=== PATIENT | female | born 1990 | race Caucasian/White ===

== ENCOUNTER 2017-02-12 06:39 | Day surgery (SDC) | payer OTHER ==
[~2017-02-12] VITALS: Ht 172.7 cm; Wt 122.5 kg
[~2017-02-12 06:39] MED LIST: BACTRIM,SEPT1 TABLET PO; FLOMAX0.4 MG PO; GLIMEPIRIDE4 MG PO; HYDROCHLOROTH12.5 M3 PO; INSULIN PUMP SCCONT; JARDIANCE25 MG PO; LANTUS 10100 UNITS/ SC; LISINOPRIL10 MG PO; LORTAB 5-325 M1 EACH PO; METFORMIN HCL1000 MG PO; METHYLDOPA500 MG PO; NAPROSYN500 MG PO; ONGLYZA5 MG PO; PERCOCET 5/31 TABLET PO; PRAVASTATIN SOD20 MG PO; PRENATAL TABLE1 EAC3 PO; RAMIPRIL1.25 MG PO; TORADOL10 MG PO; TRINESSA1 EACH PO; VICODIN 5-3001 EACH PO; ZOFRAN ODT8 MG PO; ZOFRAN4 MG PO; [UNRECOGNIZED DRUG - REMARK]
[2017-02-12 07:10] VITALS: BP 122/62
[2017-02-12 07:45] LABS: POINT-OF-CARE METER ID UU14174212
[2017-02-12 10:09] LABS: POINT-OF-CARE METER ID UU13113675
[2017-02-12 10:45] VITALS: BP 127/67
[2017-02-12 11:25] VITALS: BP 126/85
== END 2017-02-12 11:30 | disposition home or self-care (01) ==
LOC: SDC 06:39
PROVIDERS: Obstetrics & Gynecology Gynecology
DX: N84.0 Polyp of corpus uteri (principal); N97.9 Female infertility, unspecified; N85.4 Malposition of uterus; I10 Essential (primary) hypertension; E11.9 Type 2 diabetes mellitus without complications; Z96.41 Presence of insulin pump (external) (internal); Z79.84 Long term (current) use of oral hypoglycemic drugs; Z79.4 Long term (current) use of insulin; Z87.891 Personal history of nicotine dependence
CPT/HCPCS: 82948; 84702; 88305; 93005; J0330; J1170; J2250; J2405; J3010

== ENCOUNTER 2017-07-30 18:16 | Emergency (ER) | payer OTHER ==
[~2017-07-30] VITALS: Ht 172.7 cm; Wt 139.8 kg
[2017-07-30 18:52] LABS: MCH 29.7 PG (29.0-34.0); MCHC 35.9 G/DL (30.0-36.0); MCV 82.7 FL (83-99); PLATELET COUNT 173 K/uL (156-360); RBC DIS.WIDTH-CV 13.1 % (11.8-14.6); RBC DIS.WIDTH-SD 38.8 % (39-53); RED BLOOD COUNT 4.11 M/uL (3.80-5.20); WHITE BLOOD COUNT 9.2 K/uL (4.1-10.2)
[2017-07-30 19:07] LABS: CHLORIDE 109 mEq/L (99-109); POTASSIUM 3.8 mEq/L (3.7-5.4); SODIUM 136 mEq/L (136-147)
[2017-07-30 19:09] LABS: GLUCOSE 188 mg/dL (70-99)
[2017-07-30 19:11] LABS: ANION GAP 5 MEQ/L (2-14); TOTAL BILIRUBIN 0.3 mg/dL (0.0-1.0)
[2017-07-30 19:13] LABS: ALKALINE PHOSPHATASE 57 IU/L (3-129); GFR ESTIMATE (CALCULATED) > 59 mL/min/
[2017-07-30 19:14] LABS: UREA NITROGEN (BUN) 8 mg/dL (9-23)
[2017-07-30 20:42] LABS: ADD MIUA? YES; BILIRUBIN NEGATIVE; BLOOD NEGATIVE; COLOR YELLOW ((YELLOW)); GLUCOSE (STRIP) >=500; KETONES NEGATIVE; LEUKOCYTES NEGATIVE; NITRITE NEGATIVE; PROTEIN (STRIP) 30; SPECIFIC GRAVITY 1.016 (1.000-1.030)
[2017-07-30 20:58] LABS: BACTERIA RARE /HPF; EPITHELIAL CELLS RARE /HPF; MUCUS TRACE /LPF; RED BLOOD CELLS 0-5 /HPF (0-5); UCUL ADDED? NO; WHITE BLOOD CELLS 0-5 /HPF (0-5)
[2017-07-30 21:13] VITALS: BP 140/85
== END 2017-07-30 21:14 | disposition home or self-care (01) ==
LOC: EME 18:16 → RME 18:16
PROVIDERS: Nurse Practitioner Family
DX: O12.01 Gestational edema, first trimester (principal); O99.281 Endocrine, nutritional and metabolic diseases complicating pregnancy, first trimester; O24.311 Unspecified pre-existing diabetes mellitus in pregnancy, first trimester; E11.9 Type 2 diabetes mellitus without complications; Z79.4 Long term (current) use of insulin; Z96.41 Presence of insulin pump (external) (internal); Z3A.13 13 weeks gestation of pregnancy; E78.5 Hyperlipidemia, unspecified; Z79.84 Long term (current) use of oral hypoglycemic drugs; Z87.442 Personal history of urinary calculi; Z87.891 Personal history of nicotine dependence; Z88.8 Allergy status to other drugs, medicaments and biological substances
CPT/HCPCS: 80053; 81003; 85027; 93971

== ENCOUNTER 2017-09-12 20:32 | Outpatient (CLI) | payer OTHER ==
[2017-09-12 21:02] VITALS: BP 138/96
[2017-09-12 21:20] VITALS: BP 134/80
[2017-09-12 21:32] LABS: BASOPHIL (%) 0.1 % (0-1); EOSINOPHIL (%) 0.2 % (0-5); HEMATOCRIT 34.7 % (36.0-46.0); HEMOGLOBIN 12.3 G/DL (11.9-15.5); IMMATURE GRANULOCYTE (%) 0.5 % (0.0-0.7); LYMPHOCYTE (%) 6.5 % (15-42); LYMPHOCYTE COUNT 0.9 K/uL (1.0-2.8); MCH 29.9 PG (29.0-34.0); MCHC 35.4 G/DL (30.0-36.0); MCV 84.4 FL (83-99); MONOCYTE (%) 4.2 % (3-12); MONOCYTE COUNT 0.6 K/uL (0-0.8); NEUTROPHIL (%) 88.5 % (45-76); NEUTROPHIL COUNT 11.9 K/uL (1.8-6.4); PLATELET COUNT 184 K/uL (156-360); RBC DIS.WIDTH-CV 13.9 % (11.8-14.6); RBC DIS.WIDTH-SD 42.2 % (39-53); RED BLOOD COUNT 4.11 M/uL (3.80-5.20); WHITE BLOOD COUNT 13.5 K/uL (4.1-10.2)
[2017-09-12 23:23] VITALS: BP 133/83
== END 2017-09-13 00:30 | disposition home or self-care (01) ==
LOC: LDRP-OP 20:32 → 2WEST 20:33
PROVIDERS: Advanced Practice Midwife; Obstetrics & Gynecology
DX: O99.89 Other specified diseases and conditions complicating pregnancy, childbirth and the puerperium (principal); O24.312 Unspecified pre-existing diabetes mellitus in pregnancy, second trimester; E11.9 Type 2 diabetes mellitus without complications; Z3A.19 19 weeks gestation of pregnancy; Z96.41 Presence of insulin pump (external) (internal); Z79.4 Long term (current) use of insulin
CPT/HCPCS: 59025; 82948; 85025; 87502; G0378; J2405; J7120

== ENCOUNTER 2017-10-11 11:15 | Outpatient (CLI) | payer OTHER ==
[2017-10-11 11:40] VITALS: BP 131/83
[2017-10-11] MEDS ORDERED: ASPIR 8181 M1 PO (11:46)
[2017-10-11] MEDS ORDERED: GLUCOPHAGE500 MG PO (11:47)
[2017-10-11 12:17] VITALS: BP 122/78
[2017-10-11 12:49] LABS: UR CREATININE CONCENTRATION 133.6 MG/DL
[2017-10-11 13:03] LABS: HEMATOCRIT 32.6 % (36.0-46.0); HEMOGLOBIN 11.3 G/DL (11.9-15.5); MCH 29.7 PG (29.0-34.0); MCHC 34.7 G/DL (30.0-36.0); MCV 85.6 FL (83-99); PLATELET COUNT 175 K/uL (156-360); RBC DIS.WIDTH-CV 14.2 % (11.8-14.6); RED BLOOD COUNT 3.81 M/uL (3.80-5.20); WHITE BLOOD COUNT 10.2 K/uL (4.1-10.2)
[2017-10-11 13:12] LABS: ALBUMIN 3.4 G/DL (3.2-4.8); ALKALINE PHOSPHATASE 74 IU/L (3-129); ALT (GPT) 30 IU/L (3-49); AST (GOT) 33 IU/L (2-34); CHLORIDE 104 MEQ/L (99-109); CREATININE 0.5 MG/DL (0.6-1.3); GFR ESTIMATE (CALCULATED) > 59 mL/min/; GLUCOSE 121 mg/dL (70-99); SODIUM 137 MEQ/L (136-147); TOTAL BILIRUBIN 0.5 MG/DL (0.0-1.0); TOTAL PROTEIN 6.2 G/DL (6.4-8.3); UREA NITROGEN (BUN) 6 mg/dL (9-23)
[2017-10-11 14:15] VITALS: BP 127/79
== END 2017-10-11 16:50 | disposition home or self-care (01) ==
LOC: LDRP-OP 11:15 → 2WEST 11:17 → LDRP-OP 03-04 01:18
PROVIDERS: Obstetrics & Gynecology Obstetrics
DX: O26.892 Other specified pregnancy related conditions, second trimester (principal); R51 Headache; O10.912 Unspecified pre-existing hypertension complicating pregnancy, second trimester; O24.312 Unspecified pre-existing diabetes mellitus in pregnancy, second trimester; E11.9 Type 2 diabetes mellitus without complications; Z79.4 Long term (current) use of insulin; Z96.41 Presence of insulin pump (external) (internal); Z3A.25 25 weeks gestation of pregnancy; Z87.891 Personal history of nicotine dependence
CPT/HCPCS: 59025; 76805; 80053; 82570; 82948; 84156; 85027; G0378

== ENCOUNTER 2017-10-18 09:56 | Outpatient (CLI) | payer OTHER ==
[2017-10-18] VITALS (7 sets, daily range): BP systolic 124–140; BP diastolic 71–81
[~2017-10-18 09:56] MED LIST changes: +ASPIR 8181 M1 PO; +GLUCOPHAGE500 MG PO
[2017-10-18 11:00] LABS: BASOPHIL (%) 0.2 % (0-1); EOSINOPHIL (%) 0.6 % (0-5); EOSINOPHIL COUNT 0.1 K/uL (0-0.3); HEMOGLOBIN 11.4 G/DL (11.9-15.5); IMMATURE GRANULOCYTE (%) 0.6 % (0.0-0.7); LYMPHOCYTE (%) 13.3 % (15-42); LYMPHOCYTE COUNT 1.6 K/uL (1.0-2.8); MCH 28.7 PG (29.0-34.0); MCHC 34.5 G/DL (30.0-36.0); MCV 83.1 FL (83-99); MONOCYTE (%) 4.7 % (3-12); MONOCYTE COUNT 0.6 K/uL (0-0.8); NEUTROPHIL (%) 80.6 % (45-76); NEUTROPHIL COUNT 9.5 K/uL (1.8-6.4); PLATELET COUNT 193 K/uL (156-360); RBC DIS.WIDTH-CV 13.9 % (11.8-14.6); RBC DIS.WIDTH-SD 41.1 % (39-53); RED BLOOD COUNT 3.97 M/uL (3.80-5.20); WHITE BLOOD COUNT 11.8 K/uL (4.1-10.2)
[2017-10-18 11:14] LABS: UR CREATININE CONCENTRATION 257.3 MG/DL
[2017-10-18 11:31] LABS: ALBUMIN 3.4 G/DL (3.2-4.8); ALKALINE PHOSPHATASE 78 IU/L (3-129); ALT (GPT) 29 IU/L (3-49); AST (GOT) 27 IU/L (2-34); CHLORIDE 103 MEQ/L (99-109); CREATININE 0.6 MG/DL (0.6-1.3); GFR ESTIMATE (CALCULATED) > 59 mL/min/; GLUCOSE 152 mg/dL (70-99); POTASSIUM 3.9 MEQ/L (3.7-5.4); SODIUM 135 MEQ/L (136-147); TOTAL BILIRUBIN 0.5 MG/DL (0.0-1.0); TOTAL PROTEIN 6.8 G/DL (6.4-8.3); UREA NITROGEN (BUN) 7 mg/dL (9-23)
[2017-10-18] MEDS ORDERED: PROCARDIA XL30 MG PO (11:58)
== END 2017-10-18 12:13 | disposition home or self-care (01) ==
LOC: LDRP-OP 09:56 → 2WEST 09:57 → LDRP-OP 03-04 19:26
PROVIDERS: Nurse Practitioner
DX: O13.2 Gestational [pregnancy-induced] hypertension without significant proteinuria, second trimester (principal); Z3A.24 24 weeks gestation of pregnancy; O24.012 Pre-existing type 1 diabetes mellitus, in pregnancy, second trimester; E11.9 Type 2 diabetes mellitus without complications; Z96.41 Presence of insulin pump (external) (internal); Z79.4 Long term (current) use of insulin; O99.412 Diseases of the circulatory system complicating pregnancy, second trimester; R00.0 Tachycardia, unspecified
CPT/HCPCS: 59025; 80053; 82570; 84156; 85025; G0378

== ENCOUNTER 2017-10-31 00:24 | Outpatient (CLI) | payer OTHER ==
[~2017-10-31 00:24] MED LIST changes: +PROCARDIA XL30 MG PO
[2017-10-31] MEDS ORDERED: PROCARDIA XL60 MG PO (00:46)
[2017-10-31] MEDS ORDERED: LABETALOL HCL100 MG PO (00:47)
[2017-10-31 00:48] VITALS: BP 136/80
[2017-10-31 00:50] LABS: BASOPHIL (%) 0.2 % (0-1); EOSINOPHIL (%) 0.9 % (0-5); EOSINOPHIL COUNT 0.1 K/uL (0-0.3); HEMATOCRIT 32.3 % (36.0-46.0); HEMOGLOBIN 11.6 G/DL (11.9-15.5); IMMATURE GRANULOCYTE (%) 0.8 % (0.0-0.7); LYMPHOCYTE (%) 16.3 % (15-42); LYMPHOCYTE COUNT 1.8 K/uL (1.0-2.8); MCH 29.7 PG (29.0-34.0); MCHC 35.9 G/DL (30.0-36.0); MCV 82.6 FL (83-99); MONOCYTE COUNT 0.7 K/uL (0-0.8); NEUTROPHIL (%) 75.8 % (45-76); NEUTROPHIL COUNT 8.3 K/uL (1.8-6.4); PLATELET COUNT 203 K/uL (156-360); RBC DIS.WIDTH-CV 14.2 % (11.8-14.6); RBC DIS.WIDTH-SD 41.7 % (39-53); RED BLOOD COUNT 3.91 M/uL (3.80-5.20)
[2017-10-31 00:59] LABS: ALBUMIN 3.4 g/dL (3.2-4.8); CHLORIDE 106 mEq/L (99-109); POTASSIUM 3.7 mEq/L (3.7-5.4); SODIUM 137 mEq/L (136-147)
[2017-10-31 01:02] LABS: GLUCOSE 132 mg/dL (70-99); TOTAL PROTEIN 7.1 g/dL (6.4-8.3)
[2017-10-31 01:03] LABS: TOTAL BILIRUBIN 0.4 mg/dL (0.0-1.0)
[2017-10-31 01:05] LABS: ALKALINE PHOSPHATASE 102 IU/L (3-129); CREATININE 0.7 mg/dL (0.6-1.3); GFR ESTIMATE (CALCULATED) > 59 mL/min/
[2017-10-31 01:06] LABS: UREA NITROGEN (BUN) 9 mg/dL (9-23)
[2017-10-31 01:07] LABS: AST (GOT) 32 IU/L (2-34)
[2017-10-31 01:08] LABS: ALT (GPT) 36 IU/L (3-49); URIC ACID 4.8 mg/dL (3.1-9.2)
[2017-10-31 01:36] VITALS: BP 138/72
[2017-10-31 03:37] LABS: UR CREATININE CONCENTRATION 115.2 MG/DL
[2017-10-31 03:41] VITALS: BP 130/65
== END 2017-10-31 04:40 | disposition home or self-care (01) ==
LOC: LDRP-OP 00:24 → 2WEST 00:25 → LDRP-OP 03-04 12:41
PROVIDERS: Nurse Practitioner
DX: O16.2 Unspecified maternal hypertension, second trimester (principal); Z3A.26 26 weeks gestation of pregnancy
CPT/HCPCS: 59025; 80053; 82570; 84156; 84550; 85025; G0378

== ENCOUNTER → 2017-11-12 | Outpatient (CLI) | payer OTHER ==
[~2017-11-12] VITALS: Ht 172.7 cm; Wt 141.0 kg
[~2017-11-12] MED LIST changes: +LABETALOL HCL100 MG PO; +PROCARDIA XL60 MG PO
[2017-11-12 15:32] VITALS: BP 133/81
== END | disposition home or self-care (01) ==
LOC: IVINF 15:26
DX: Z34.83 Encounter for supervision of other normal pregnancy, third trimester (principal); Z3A.28 28 weeks gestation of pregnancy; Z67.21 Type B blood, Rh negative
CPT/HCPCS: 96372; J2790

== ENCOUNTER 2017-11-24 16:27 | Outpatient (CLI) | payer OTHER ==
[2017-11-24 16:56] VITALS: BP 126/75
[2017-11-24] MEDS ORDERED: NEXIUM20 MG PO (16:56)
[2017-11-24 17:11] LABS: BASOPHIL (%) 0.2 % (0-1); EOSINOPHIL (%) 0.7 % (0-5); EOSINOPHIL COUNT 0.1 K/uL (0-0.3); HEMATOCRIT 32.2 % (36.0-46.0); IMMATURE GRANULOCYTE (%) 0.6 % (0.0-0.7); LYMPHOCYTE (%) 14.4 % (15-42); LYMPHOCYTE COUNT 1.8 K/uL (1.0-2.8); MCH 28.4 PG (29.0-34.0); MCHC 34.2 G/DL (30.0-36.0); MONOCYTE (%) 6.1 % (3-12); MONOCYTE COUNT 0.8 K/uL (0-0.8); NEUTROPHIL COUNT 9.5 K/uL (1.8-6.4); PLATELET COUNT 226 K/uL (156-360); RBC DIS.WIDTH-CV 14.6 % (11.8-14.6); RBC DIS.WIDTH-SD 43.1 % (39-53); RED BLOOD COUNT 3.88 M/uL (3.80-5.20); WHITE BLOOD COUNT 12.2 K/uL (4.1-10.2)
[2017-11-24 17:31] LABS: ALBUMIN 3.4 G/DL (3.2-4.8); CHLORIDE 105 MEQ/L (99-109); SODIUM 135 MEQ/L (136-147); TOTAL BILIRUBIN 0.4 MG/DL (0.0-1.0)
[2017-11-24 17:36] VITALS: BP 123/75
[2017-11-24 17:37] LABS: ALKALINE PHOSPHATASE 113 IU/L (3-129); ALT (GPT) 27 IU/L (3-49); AST (GOT) 25 IU/L (2-34); CREATININE 0.6 MG/DL (0.6-1.3); GFR ESTIMATE (CALCULATED) > 59 mL/min/; GLUCOSE 73 mg/dL (70-99); UREA NITROGEN (BUN) 5 mg/dL (9-23)
[2017-11-24 18:20] LABS: UR CREATININE CONCENTRATION 227.4 MG/DL
[2017-11-24 19:23] VITALS: BP 132/78
[2017-11-24 22:41] VITALS: BP 137/81
[2017-11-25 03:02] VITALS: BP 123/68
[2017-11-25 08:29] VITALS: BP 119/70
[2017-11-25 10:51] VITALS: BP 107/55
[2017-11-25 16:13] VITALS: BP 134/67
== END 2017-11-25 17:18 | disposition home or self-care (01) ==
LOC: LDRP-OP 16:27 → 2WEST 16:28 → LDRP-OP 03-04 04:56
PROVIDERS: Obstetrics & Gynecology
DX: O99.283 Endocrine, nutritional and metabolic diseases complicating pregnancy, third trimester (principal); E11.649 Type 2 diabetes mellitus with hypoglycemia without coma; O16.3 Unspecified maternal hypertension, third trimester; O99.213 Obesity complicating pregnancy, third trimester; Z68.42 Body mass index [BMI] 45.0-49.9, adult; O26.833 Pregnancy related renal disease, third trimester; N20.0 Calculus of kidney; Z3A.30 30 weeks gestation of pregnancy; Z96.41 Presence of insulin pump (external) (internal); Z79.4 Long term (current) use of insulin
CPT/HCPCS: 59025; 80053; 82570; 82948; 84156; 85025; G0378; J1815

== ENCOUNTER 2017-12-16 16:26 | Outpatient (CLI) | payer OTHER ==
[~2017-12-16] VITALS: Ht 172.7 cm; Wt 139.2 kg
[~2017-12-16 16:26] MED LIST changes: +NEXIUM20 MG PO
[2017-12-16 16:48] VITALS: BP 124/78
[2017-12-16] MEDS ORDERED: LABETALOL HCL100 MG PO (16:48)
[2017-12-16 17:21] VITALS: BP 121/74
[2017-12-16 17:31] LABS: BASOPHIL (%) 0.3 % (0-1); EOSINOPHIL (%) 0.5 % (0-5); EOSINOPHIL COUNT 0.1 K/uL (0-0.3); HEMATOCRIT 33.2 % (36.0-46.0); HEMOGLOBIN 11.4 G/DL (11.9-15.5); IMMATURE GRANULOCYTE (%) 0.5 % (0.0-0.7); LYMPHOCYTE (%) 16.8 % (15-42); LYMPHOCYTE COUNT 1.8 K/uL (1.0-2.8); MCH 28.7 PG (29.0-34.0); MCHC 34.3 G/DL (30.0-36.0); MCV 83.6 FL (83-99); MONOCYTE (%) 6.4 % (3-12); MONOCYTE COUNT 0.7 K/uL (0-0.8); NEUTROPHIL (%) 75.5 % (45-76); NEUTROPHIL COUNT 7.9 K/uL (1.8-6.4); PLATELET COUNT 218 K/uL (156-360); RBC DIS.WIDTH-CV 14.5 % (11.8-14.6); RBC DIS.WIDTH-SD 43.7 % (39-53); RED BLOOD COUNT 3.97 M/uL (3.80-5.20); WHITE BLOOD COUNT 10.5 K/uL (4.1-10.2)
[2017-12-16 17:51] VITALS: BP 112/67
[2017-12-16 17:53] LABS: ALBUMIN 3.4 G/DL (3.2-4.8); ALKALINE PHOSPHATASE 142 IU/L (3-129); ALT (GPT) 26 IU/L (3-49); AST (GOT) 24 IU/L (2-34); CHLORIDE 104 MEQ/L (99-109); CREATININE 0.6 MG/DL (0.6-1.3); GFR ESTIMATE (CALCULATED) > 59 mL/min/; GLUCOSE 84 mg/dL (70-99); POTASSIUM 4.2 MEQ/L (3.7-5.4); SODIUM 135 MEQ/L (136-147); TOTAL BILIRUBIN 0.5 MG/DL (0.0-1.0); TOTAL PROTEIN 7.1 G/DL (6.4-8.3); UREA NITROGEN (BUN) 8 mg/dL (9-23); URIC ACID 5.6 mg/dL (3.1-9.2)
[2017-12-16] MEDS ORDERED: GLUCOPHAGE500 MG PO (18:13)
[2017-12-16] MEDS ORDERED: GLUCOPHAGE1000 MG PO (18:14)
[2017-12-16 18:21] VITALS: BP 111/60
[2017-12-16 18:51] VITALS: BP 126/76
[2017-12-16 20:23] VITALS: BP 118/75
== END 2017-12-16 20:45 | disposition home or self-care (01) ==
LOC: LDRP-OP 16:26 → 2WEST 16:28 → LDRP-OP 03-04 05:45
PROVIDERS: Obstetrics & Gynecology
DX: O14.03 Mild to moderate pre-eclampsia, third trimester (principal); E11.9 Type 2 diabetes mellitus without complications; Z79.4 Long term (current) use of insulin; Z3A.33 33 weeks gestation of pregnancy
CPT/HCPCS: 59025; 80053; 82570; 84156; 84550; 85025; G0378

== ENCOUNTER 2017-12-28 01:57 | Outpatient (CLI) | payer OTHER ==
[~2017-12-28] VITALS: Ht 172.7 cm; Wt 140.1 kg
[~2017-12-28 01:57] MED LIST changes: +GLUCOPHAGE1000 MG PO
[2017-12-28 02:16] VITALS: BP 135/83
[2017-12-28 02:50] VITALS: BP 129/77
[2017-12-28 03:12] LABS: BASOPHIL (%) 0.2 % (0-1); EOSINOPHIL (%) 0.9 % (0-5); EOSINOPHIL COUNT 0.1 K/uL (0-0.3); HEMOGLOBIN 11.2 G/DL (11.9-15.5); IMMATURE GRANULOCYTE (%) 0.6 % (0.0-0.7); LYMPHOCYTE (%) 17.5 % (15-42); LYMPHOCYTE COUNT 1.9 K/uL (1.0-2.8); MCH 29.1 PG (29.0-34.0); MCV 83.1 FL (83-99); MONOCYTE (%) 6.6 % (3-12); MONOCYTE COUNT 0.7 K/uL (0-0.8); NEUTROPHIL (%) 74.2 % (45-76); NEUTROPHIL COUNT 7.9 K/uL (1.8-6.4); PLATELET COUNT 177 K/uL (156-360); RBC DIS.WIDTH-CV 14.7 % (11.8-14.6); RBC DIS.WIDTH-SD 43.5 % (39-53); RED BLOOD COUNT 3.85 M/uL (3.80-5.20); WHITE BLOOD COUNT 10.6 K/uL (4.1-10.2)
[2017-12-28 03:20] VITALS: BP 131/80
[2017-12-28 03:23] LABS: ALBUMIN 3.3 g/dL (3.2-4.8); CHLORIDE 106 mEq/L (99-109); POTASSIUM 3.8 mEq/L (3.7-5.4); SODIUM 139 mEq/L (136-147)
[2017-12-28 03:25] LABS: GLUCOSE 111 mg/dL (70-99)
[2017-12-28 03:26] LABS: TOTAL PROTEIN 6.2 g/dL (6.4-8.3)
[2017-12-28 03:27] LABS: TOTAL BILIRUBIN 0.3 mg/dL (0.0-1.0)
[2017-12-28 03:29] LABS: ALKALINE PHOSPHATASE 179 IU/L (3-129); CREATININE 0.7 mg/dL (0.6-1.3); GFR ESTIMATE (CALCULATED) > 59 mL/min/
[2017-12-28 03:30] LABS: UREA NITROGEN (BUN) 10 mg/dL (9-23)
[2017-12-28 03:31] LABS: AST (GOT) 25 IU/L (2-34)
[2017-12-28 03:32] LABS: ALT (GPT) 30 IU/L (3-49)
[2017-12-28 03:50] VITALS: BP 116/66
[2017-12-28 04:20] VITALS: BP 116/65
[2017-12-28 06:38] LABS: UR CREATININE CONCENTRATION 153.8 MG/DL
== END 2017-12-28 05:23 | disposition home or self-care (01) ==
LOC: LDRP-OP 01:57 → 2WEST 01:58 → LDRP-OP 03-04 21:48
PROVIDERS: Advanced Practice Midwife
DX: O10.913 Unspecified pre-existing hypertension complicating pregnancy, third trimester (principal); R51 Headache; Z3A.34 34 weeks gestation of pregnancy
CPT/HCPCS: 59025; 80053; 82570; 84156; 85025; 85384; G0378

== ENCOUNTER 2018-01-01 15:50 | Outpatient (CLI) | payer OTHER ==
[~2018-01-01] VITALS: Ht 172.7 cm; Wt 143.0 kg
[2018-01-01 16:32] VITALS: BP 128/83
[2018-01-01 16:38] LABS: BASOPHIL (%) 0.2 % (0-1); EOSINOPHIL (%) 0.6 % (0-5); EOSINOPHIL COUNT 0.1 K/uL (0-0.3); HEMATOCRIT 31.8 % (36.0-46.0); HEMOGLOBIN 10.9 G/DL (11.9-15.5); IMMATURE GRANULOCYTE (%) 0.8 % (0.0-0.7); LYMPHOCYTE (%) 14.9 % (15-42); LYMPHOCYTE COUNT 1.5 K/uL (1.0-2.8); MCH 28.9 PG (29.0-34.0); MCHC 34.3 G/DL (30.0-36.0); MCV 84.4 FL (83-99); MONOCYTE (%) 4.9 % (3-12); MONOCYTE COUNT 0.5 K/uL (0-0.8); NEUTROPHIL (%) 78.6 % (45-76); NEUTROPHIL COUNT 7.7 K/uL (1.8-6.4); PLATELET COUNT 181 K/uL (156-360); RBC DIS.WIDTH-CV 14.8 % (11.8-14.6); RBC DIS.WIDTH-SD 45.3 % (39-53); RED BLOOD COUNT 3.77 M/uL (3.80-5.20); WHITE BLOOD COUNT 9.8 K/uL (4.1-10.2)
[2018-01-01 16:53] VITALS: BP 139/81
[2018-01-01 17:04] VITALS: BP 144/83
[2018-01-01 17:19] LABS: ALBUMIN 3.3 G/DL (3.2-4.8); CHLORIDE 106 MEQ/L (99-109); POTASSIUM 4.3 MEQ/L (3.7-5.4); SODIUM 135 MEQ/L (136-147); TOTAL BILIRUBIN 0.4 MG/DL (0.0-1.0)
[2018-01-01 17:24] LABS: ALKALINE PHOSPHATASE 170 IU/L (3-129); ALT (GPT) 23 IU/L (3-49); AST (GOT) 24 IU/L (2-34); CREATININE 0.6 MG/DL (0.6-1.3); GFR ESTIMATE (CALCULATED) > 59 mL/min/; GLUCOSE 110 mg/dL (70-99); TOTAL PROTEIN 6.1 G/DL (6.4-8.3); UREA NITROGEN (BUN) 12 mg/dL (9-23)
[2018-01-01 17:25] LABS: UR CREATININE CONCENTRATION 203.4 MG/DL
[2018-01-01 17:34] VITALS: BP 157/87
[2018-01-01 18:04] VITALS: BP 140/90
[2018-01-01 18:35] VITALS: BP 134/78
== END 2018-01-01 19:45 | disposition home or self-care (01) ==
LOC: LDRP-OP 15:50 → 2WEST 15:51 → LDRP-OP 01-03 19:53
PROVIDERS: Nurse Practitioner
DX: O14.03 Mild to moderate pre-eclampsia, third trimester (principal); Z3A.35 35 weeks gestation of pregnancy
CPT/HCPCS: 59025; 80053; 82570; 84156; 85025; G0378

== ENCOUNTER 2018-01-03 07:30 | Inpatient (IN) | payer OTHER ==
[~2018-01-03] VITALS: Ht 172.7 cm; Wt 141.8 kg
[2018-01-03 08:30] LABS: BASOPHIL (%) 0.2 % (0-1); EOSINOPHIL (%) 0.6 % (0-5); EOSINOPHIL COUNT 0.1 K/uL (0-0.3); HEMATOCRIT 32.1 % (36.0-46.0); IMMATURE GRANULOCYTE (%) 0.8 % (0.0-0.7); LYMPHOCYTE (%) 20.2 % (15-42); LYMPHOCYTE COUNT 2.1 K/uL (1.0-2.8); MCH 28.6 PG (29.0-34.0); MCHC 34.3 G/DL (30.0-36.0); MCV 83.4 FL (83-99); MONOCYTE (%) 5.5 % (3-12); MONOCYTE COUNT 0.6 K/uL (0-0.8); NEUTROPHIL (%) 72.7 % (45-76); NEUTROPHIL COUNT 7.6 K/uL (1.8-6.4); PLATELET COUNT 187 K/uL (156-360); RBC DIS.WIDTH-CV 14.6 % (11.8-14.6); RBC DIS.WIDTH-SD 44.1 % (39-53); RED BLOOD COUNT 3.85 M/uL (3.80-5.20); WHITE BLOOD COUNT 10.4 K/uL (4.1-10.2)
[2018-01-03 08:58] LABS: ALKALINE PHOSPHATASE 150 IU/L (3-129); ALT (GPT) 24 IU/L (3-49); AST (GOT) 25 IU/L (2-34); CHLORIDE 107 MEQ/L (99-109); CREATININE 0.6 MG/DL (0.6-1.3); GFR ESTIMATE (CALCULATED) > 59 mL/min/; GLUCOSE 88 mg/dL (70-99); POTASSIUM 4.2 MEQ/L (3.7-5.4); SODIUM 136 MEQ/L (136-147); TOTAL BILIRUBIN 0.4 MG/DL (0.0-1.0); TOTAL PROTEIN 6.1 G/DL (6.4-8.3); UREA NITROGEN (BUN) 12 mg/dL (9-23)
[2018-01-03 09:15] VITALS: BP 127/69
[2018-01-03 10:50] LABS: AMPHETAMINE PRESUMPTIVE POSITIVE (500 ng/mL); BARBITURATES NEGATIVE (200 ng/mL); BENZODIAZEPINES NEGATIVE (150 ng/mL); BUPRENORPHINE NEGATIVE (10 ng/mL); COCAINE NEGATIVE (150 ng/mL); METHADONE NEGATIVE (200 ng/mL); METHAMPHETAMINE NEGATIVE (500 ng/mL); OPIATES (MORPHINE) NEGATIVE (100 ng/mL); OXYCODONE NEGATIVE (100 ng/mL); PHENCYCLIDINE NEGATIVE (25 ng/mL); PROPOXYPHENE NEGATIVE (300 ng/mL); THC CANNABINOIDS NEGATIVE (50 ng/mL); TRICYCLIC ANTIDEPRESSANTS NEGATIVE (300 ng/mL)
[2018-01-03 10:57] LABS: UR CREATININE CONCENTRATION 149.3 MG/DL
[2018-01-03 13:04] VITALS: BP 144/83
[2018-01-03 17:05] VITALS: BP 141/80
[2018-01-03 17:23] LABS: AMPHETAMINE PRESUMPTIVE POSITIVE (500 ng/mL); BARBITURATES NEGATIVE (200 ng/mL); BENZODIAZEPINES NEGATIVE (150 ng/mL); BUPRENORPHINE NEGATIVE (10 ng/mL); COCAINE NEGATIVE (150 ng/mL); METHADONE NEGATIVE (200 ng/mL); METHAMPHETAMINE NEGATIVE (500 ng/mL); OPIATES (MORPHINE) NEGATIVE (100 ng/mL); OXYCODONE NEGATIVE (100 ng/mL); PHENCYCLIDINE NEGATIVE (25 ng/mL); PROPOXYPHENE NEGATIVE (300 ng/mL); THC CANNABINOIDS NEGATIVE (50 ng/mL); TRICYCLIC ANTIDEPRESSANTS NEGATIVE (300 ng/mL)
[2018-01-03 19:08] VITALS: BP 157/91
[2018-01-03 19:19] VITALS: BP 157/80
[2018-01-03 21:02] VITALS: BP 148/85
[2018-01-04 01:06] VITALS: BP 136/77
[2018-01-04 05:05] VITALS: BP 128/74
[2018-01-04 09:30] VITALS: BP 128/73
[2018-01-04 12:41] VITALS: BP 134/68
[2018-01-04 16:06] VITALS: BP 146/71
[2018-01-04 20:02] VITALS: BP 158/81
[2018-01-05] VITALS (23 sets, daily range): BP systolic 129–174; BP diastolic 72–93
[2018-01-06] VITALS (36 sets, daily range): BP systolic 90–174; BP diastolic 53–92
[2018-01-07] VITALS (18 sets, daily range): BP systolic 108–137; BP diastolic 54–78
[2018-01-07 12:20] LABS: BASOPHIL (%) 0.3 % (0-1); EOSINOPHIL (%) 0.3 % (0-5); HEMATOCRIT 33.4 % (36.0-46.0); HEMOGLOBIN 11.2 G/DL (11.9-15.5); IMMATURE GRANULOCYTE (%) 0.8 % (0.0-0.7); LYMPHOCYTE (%) 13.5 % (15-42); LYMPHOCYTE COUNT 1.5 K/uL (1.0-2.8); MCH 28.4 PG (29.0-34.0); MCHC 33.5 G/DL (30.0-36.0); MCV 84.6 FL (83-99); MONOCYTE (%) 5.9 % (3-12); MONOCYTE COUNT 0.7 K/uL (0-0.8); NEUTROPHIL (%) 79.2 % (45-76); NEUTROPHIL COUNT 9.1 K/uL (1.8-6.4); PLATELET COUNT 203 K/uL (156-360); RBC DIS.WIDTH-CV 14.6 % (11.8-14.6); RBC DIS.WIDTH-SD 44.9 % (39-53); RED BLOOD COUNT 3.95 M/uL (3.80-5.20); WHITE BLOOD COUNT 11.4 K/uL (4.1-10.2)
[2018-01-07 12:54] LABS: ALBUMIN 3.2 G/DL (3.2-4.8); ALKALINE PHOSPHATASE 186 IU/L (3-129); ALT (GPT) 32 IU/L (3-49); CHLORIDE 105 MEQ/L (99-109); CREATININE 0.6 MG/DL (0.6-1.3); GFR ESTIMATE (CALCULATED) > 59 mL/min/; GLUCOSE 80 mg/dL (70-99); POTASSIUM 4.1 MEQ/L (3.7-5.4); SODIUM 136 MEQ/L (136-147); TOTAL PROTEIN 5.9 G/DL (6.4-8.3); UREA NITROGEN (BUN) 9 mg/dL (9-23)
[2018-01-07 12:56] LABS: AST (GOT) 41 IU/L (2-34); TOTAL BILIRUBIN 0.9 MG/DL (0.0-1.0)
[2018-01-08 00:16] VITALS: BP 122/62
[2018-01-08 02:05] VITALS: BP 127/73
[2018-01-08 04:20] VITALS: BP 98/57
[2018-01-08 06:27] LABS: BASOPHIL (%) 0.2 % (0-1); EOSINOPHIL (%) 0.5 % (0-5); EOSINOPHIL COUNT 0.1 K/uL (0-0.3); HEMATOCRIT 26.6 % (36.0-46.0); IMMATURE GRANULOCYTE (%) 0.6 % (0.0-0.7); LYMPHOCYTE (%) 12.8 % (15-42); LYMPHOCYTE COUNT 1.6 K/uL (1.0-2.8); MCH 28.7 PG (29.0-34.0); MCHC 33.8 G/DL (30.0-36.0); MCV 84.7 FL (83-99); MONOCYTE (%) 5.5 % (3-12); MONOCYTE COUNT 0.7 K/uL (0-0.8); NEUTROPHIL (%) 80.4 % (45-76); PLATELET COUNT 163 K/uL (156-360); RBC DIS.WIDTH-CV 14.8 % (11.8-14.6); RBC DIS.WIDTH-SD 45.6 % (39-53); RED BLOOD COUNT 3.14 M/uL (3.80-5.20); WHITE BLOOD COUNT 12.4 K/uL (4.1-10.2)
[2018-01-08 06:38] LABS: ALBUMIN 2.8 G/DL (3.2-4.8); ALKALINE PHOSPHATASE 148 IU/L (3-129); ALT (GPT) 29 IU/L (3-49); AST (GOT) 36 IU/L (2-34); CHLORIDE 103 MEQ/L (99-109); CREATININE 0.7 MG/DL (0.6-1.3); GFR ESTIMATE (CALCULATED) > 59 mL/min/; GLUCOSE 88 mg/dL (70-99); SODIUM 134 MEQ/L (136-147); TOTAL BILIRUBIN 0.8 MG/DL (0.0-1.0); TOTAL PROTEIN 5.2 G/DL (6.4-8.3); UREA NITROGEN (BUN) 12 mg/dL (9-23)
[2018-01-08 19:46] VITALS: BP 115/58
[2018-01-08 23:01] VITALS: BP 128/66
[2018-01-09 03:13] VITALS: BP 121/73
[2018-01-09 22:33] VITALS: BP 134/70
[2018-01-10 03:08] VITALS: BP 115/57
[2018-01-10 07:16] VITALS: BP 133/61
[2018-01-10] MEDS ORDERED: LABETALOL HCL100 MG PO (07:16)
[2018-01-10] MEDS ORDERED: PROCARDIA XL60 MG PO (07:16)
[2018-01-10] MEDS ORDERED: METHYLDOPA500 MG PO (07:16)
[2018-01-10] MEDS ORDERED: IBUPROFEN800 MG PO (07:16)
[2018-01-10] MEDS ORDERED: ENDOCET 5-3251 EACH PO (07:16)
[2018-01-10 10:43] VITALS: BP 133/65
== END 2018-01-10 15:20 | disposition home or self-care (01) | DRG 765 ==
LOC: LDRP-OP 07:30 → 2WEST 07:31 → LDRP-OP 20:01 → 2WEST 01-07 14:12 → LDRP-OP 03-04 19:52
PROVIDERS: Obstetrics & Gynecology; Obstetrics & Gynecology Gynecology; Obstetrics & Gynecology Obstetrics
DX: O11.4 Pre-existing hypertension with pre-eclampsia, complicating childbirth (principal); O10.92 Unspecified pre-existing hypertension complicating childbirth; O24.02 Pre-existing type 1 diabetes mellitus, in childbirth; E10.65 Type 1 diabetes mellitus with hyperglycemia; Z79.4 Long term (current) use of insulin; Z96.41 Presence of insulin pump (external) (internal); O61.0 Failed medical induction of labor; O62.0 Primary inadequate contractions; O69.2XX0 Labor and delivery complicated by other cord entanglement, with compression, not applicable or unspecified; O60.14X0 Preterm labor third trimester with preterm delivery third trimester, not applicable or unspecified; Z3A.36 36 weeks gestation of pregnancy; Z37.0 Single live birth; O99.214 Obesity complicating childbirth; O26.893 Other specified pregnancy related conditions, third trimester; Z67.21 Type B blood, Rh negative; E66.01 Morbid (severe) obesity due to excess calories; Z68.42 Body mass index [BMI] 45.0-49.9, adult; O99.284 Endocrine, nutritional and metabolic diseases complicating childbirth; E55.9 Vitamin D deficiency, unspecified; E78.5 Hyperlipidemia, unspecified
CPT/HCPCS: 80053; 82570; 82948; 83030; 84156; 84999; 85025; 86850; 86900; 86901; 86920; 87081; 88307; C1755; G0378; J0131; J0360; J0702; J1580; J1650; J1885; J2274; J2405; J2590; J2790; J3010; J7050; J7120

== ENCOUNTER 2018-03-11 13:56 | Emergency (ER) | payer OTHER ==
[~2018-03-11] VITALS: Ht 172.7 cm; Wt 139.1 kg
[~2018-03-11 13:56] MED LIST changes: +ENDOCET 5-3251 EACH PO; +IBUPROFEN800 MG PO
[2018-03-11 15:12] LABS: HEMATOCRIT 39.6 % (36.0-46.0); HEMOGLOBIN 13.4 G/DL (11.9-15.5); MCH 26.7 PG (29.0-34.0); MCHC 33.8 G/DL (30.0-36.0); PLATELET COUNT 224 K/uL (156-360); RBC DIS.WIDTH-SD 42.7 % (39-53); RED BLOOD COUNT 5.01 M/uL (3.80-5.20); WHITE BLOOD COUNT 8.7 K/uL (4.1-10.2)
[2018-03-11 15:20] LABS: APPEARANCE CLEAR ((CLEAR)); BILIRUBIN NEGATIVE; BLOOD NEGATIVE; COLOR YELLOW ((YELLOW)); GLUCOSE (STRIP) NEGATIVE; KETONES 5; LEUKOCYTES NEGATIVE; NITRITE NEGATIVE; PROTEIN (STRIP) 30; SPECIFIC GRAVITY 1.018 (1.000-1.030); UCUL ADDED? NO; UROBILINOGEN 0.2 MG/DL (0.2-1.0)
[2018-03-11 15:22] LABS: ALBUMIN 4.3 g/dL (3.2-4.8); CHLORIDE 101 mEq/L (99-109)
[2018-03-11 15:23] LABS: POTASSIUM 3.9 mEq/L (3.7-5.4); SODIUM 141 mEq/L (136-147)
[2018-03-11 15:25] LABS: GLUCOSE 142 mg/dL (70-99); TOTAL PROTEIN 7.9 g/dL (6.4-8.3)
[2018-03-11 15:27] LABS: TOTAL BILIRUBIN 0.8 mg/dL (0.0-1.0)
[2018-03-11 15:28] LABS: ALKALINE PHOSPHATASE 93 IU/L (3-129)
[2018-03-11 15:29] LABS: CREATININE 0.8 mg/dL (0.6-1.3); GFR ESTIMATE (CALCULATED) > 59 mL/min/
[2018-03-11 15:30] LABS: AST (GOT) 91 IU/L (2-34); UREA NITROGEN (BUN) 9 mg/dL (9-23)
[2018-03-11 15:31] LABS: ALT (GPT) 111 IU/L (3-49)
[2018-03-11 15:41] LABS: QUANTITATIVE HCG < 4.0 MIU/ML
[2018-03-11 16:10] LABS: LIPASE 29 U/L (1.0-51.0)
[2018-03-11 16:53] VITALS: BP 136/95
[2018-03-11] MEDS ORDERED: ZOFRAN ODT4 MG PO (18:48)
== END 2018-03-11 19:13 | disposition home or self-care (01) ==
LOC: EXP 13:56 → EME 13:56 → EXP 19:13
DX: K80.20 Calculus of gallbladder without cholecystitis without obstruction (principal); R11.2 Nausea with vomiting, unspecified; R19.7 Diarrhea, unspecified; E11.65 Type 2 diabetes mellitus with hyperglycemia; Z79.4 Long term (current) use of insulin; Z96.41 Presence of insulin pump (external) (internal); K76.0 Fatty (change of) liver, not elsewhere classified; I10 Essential (primary) hypertension; Z87.442 Personal history of urinary calculi; Z97.5 Presence of (intrauterine) contraceptive device; Z87.891 Personal history of nicotine dependence
CPT/HCPCS: 76705; 80053; 81003; 83690; 84702; 85027; 93005; J2270; J2405; J7030

== ENCOUNTER 2018-03-31 11:27 | Day surgery (SDC) | payer OTHER ==
[~2018-03-31] VITALS: Ht 172.7 cm; Wt 140.7 kg
[~2018-03-31 11:27] MED LIST changes: +GLUCOPHAGE XR750 MG PO; +HYDROCHLOROTHIA25 MG PO; +IRON325 M1 PO; +TOPROL XL100 MG PO; +TRAMADOL HCL50 MG PO; +ZOFRAN ODT4 MG PO
[2018-03-31 12:23] VITALS: BP 143/88
[2018-03-31 16:38] VITALS: BP 133/76
[2018-03-31 19:08] VITALS: BP 166/78
[2018-03-31 23:54] VITALS: BP 130/76
[2018-04-01 03:15] VITALS: BP 136/79
[2018-04-01 05:55] LABS: HEMATOCRIT 36.5 % (36.0-46.0); HEMOGLOBIN 12.4 G/DL (11.9-15.5); MCH 27.2 PG (29.0-34.0); PLATELET COUNT 236 K/uL (156-360); RBC DIS.WIDTH-SD 45.9 % (39-53); RED BLOOD COUNT 4.56 M/uL (3.80-5.20); WHITE BLOOD COUNT 12.4 K/uL (4.1-10.2)
[2018-04-01 06:17] LABS: ALBUMIN 4.1 G/DL (3.2-4.8); ALKALINE PHOSPHATASE 74 IU/L (3-129); ALT (GPT) 86 IU/L (3-49); AST (GOT) 67 IU/L (2-34); CHLORIDE 100 MEQ/L (99-109); CREATININE 0.6 MG/DL (0.6-1.3); GFR ESTIMATE (CALCULATED) > 59 mL/min/; GLUCOSE 215 mg/dL (70-99); MAGNESIUM 1.7 mg/dl (1.3-2.7); PHOSPHORUS 3.4 mg/dL (2.5-4.9); POTASSIUM 4.3 MEQ/L (3.7-5.4); SODIUM 138 MEQ/L (136-147); TOTAL BILIRUBIN 0.7 MG/DL (0.0-1.0); TOTAL PROTEIN 6.5 G/DL (6.4-8.3); UREA NITROGEN (BUN) 12 mg/dL (9-23)
[2018-04-01 07:54] VITALS: BP 132/72
[2018-04-01] MEDS ORDERED: ENDOCET 5-3251 EACH PO (10:47)
[2018-04-01 11:46] VITALS: BP 134/74
== END 2018-04-01 12:25 | disposition home or self-care (01) ==
LOC: SDC 11:27 → 2SOUTH 14:46 → 2EAST 14:46 → SDC 14:50 → ENRESERV 14:50 → SDC 15:51 → 2EAST 16:19
PROVIDERS: Surgery
PROC: 0FT44ZZ Resection of Gallbladder, Percutaneous Endoscopic Approach (ICD-10-PCS; principal; 2018-03-31)
DX: K80.10 Calculus of gallbladder with chronic cholecystitis without obstruction (principal); K74.60 Unspecified cirrhosis of liver; I10 Essential (primary) hypertension; E11.9 Type 2 diabetes mellitus without complications; Z87.891 Personal history of nicotine dependence; Z79.4 Long term (current) use of insulin; Z96.41 Presence of insulin pump (external) (internal); E66.01 Morbid (severe) obesity due to excess calories; Z68.42 Body mass index [BMI] 45.0-49.9, adult; G47.30 Sleep apnea, unspecified; Z88.8 Allergy status to other drugs, medicaments and biological substances
CPT/HCPCS: 80053; 82948; 83735; 84100; 85027; 88304; G0378; J0330; J1100; J1170; J1580; J1650; J2250; J2405; J2710; J3010; J7050; J7120; J7643; Q0175; S0030